=== PATIENT | female | born 1950 | race Caucasian/White ===

== ENCOUNTER → 2017-08-14 09:58 | Outpatient (CLI) | payer MEDICARE, MEDICAID, SELFPAY ==
[2017-08-14 10:25] LABS: D-Dimer Quantitative (DVT/PE) 0.29 FEU/ug/m (0.27-0.49)
== END ==
PROVIDERS: Family Provider Family Medicine; PCP Family Medicine; Visit Provider Family Medicine
DX: R07.89 Other chest pain (principal)
CPT/HCPCS: 85379

== ENCOUNTER 2017-10-11 19:35 | Emergency (ER) | payer MEDICARE, MEDICAID, SELFPAY ==
[2017-10-11 19:36] VITALS: BP 119/70; PULSE 67; RESP 18; TEMP 36.3; O2SAT 97; BMI 24.9
--- NOTE | 2017-10-11 19:44 | EKG12_ITS ---
Test Reason : PALPITATIONS Blood Pressure : / mmHG Vent. Rate : 065 BPM Atrial Rate : 065 BPM P-R Int : 182 ms QRS Dur : 074 ms QT Int : 402 ms P-R-T Axes : 074 059 078 degrees QTc Int : 418 ms Normal sinus rhythm Normal ECG Confirmed by SYED ALEXANDRE, KARLA ([id number]), staff editor CLAIRE HOPKINS ([id number]) on 10/13/2017 3:40:25 PM Referred By: BROOKLYN Confirmed By:KARLA LYNCH MD
--- NOTE | 2017-10-11 19:46 | ED.DCSUM_ITS ---
- ER Visit Summary Date of Service: 10/11/17 Chief Complaint: Palpitations History of Present Illness: The patient is a 67 F who has had palpitations for the past 3 weeks. They have been intermittent. When she does get them she feels short of breath. Today she felt nauseous. She checked her heart rate today and it was 110. She has no symptoms currently except for the nausea. When they do happen she does not have any chest pain. She does have a history of palpitations and she takes atenolol. She has been taking this normally. She sees Dr. Alfaro. She is scheduled appointment for him on October 20. Physical Examination: Vital signs reviewed. HEENT exam unremarkable. Heart is regular rate and rhythm without murmurs. Lungs are clear to auscultation. Abdomen is soft and nontender. Extremities reveal no edema. Peripheral pulses are equal. Skin exam normal. Neurologic exam normal. Test Results: EKG is normal sinus rhythm with rate of 65. No ST changes. Labs are unremarkable except for TSH of 6.14. Chest x-ray reveals chronic changes Emergency Department Course and Treatment: Patient was watched on the clinical research monitor. No signs of tachycardia. Patient feels better and wants to go home. She asked about getting a Holter monitor from here, I told her that that would not be possible. She will call Dr. Alfaro tomorrow to move her follow-up appointment Treatment Plan: [] Disposition: Discharge Impression: Palpitations This note was generated with [email or web address] dictation software. It may contain incorrect words, spelling, and punctuation that were not noted in review of the chart prior to signing ED Disposition - Plan for ED Patient: Chief Complaint: Palpitations Referrals: Booker Hunter MD [Primary Care Provider] -
[2017-10-11 19:57] VITALS: O2SAT 96
[2017-10-11] MEDS: Ondansetron ODT 4 MG Tablet PO (19:57)
--- NOTE | 2017-10-11 20:00 | RAD_ITS ---
STUDY: X-RAY CHEST REASON FOR EXAM: Female, 67 years old. Rapid heart rate and short of breath TECHNIQUE: AP COMPARISON: November 22, 2012 FINDINGS: Lungs are mildly hyperinflated but clear. There is no demonstrated pleural abnormality. Normal size heart. Normal mediastinum and prabha. Normal visualized pulmonary arteries. Normal visualized aortic arch and descending thoracic aorta. Normal visualized thoracic spine. Normal visualized ribs, clavicles, and shoulders. There is no demonstrated abnormality of the visualized soft tissue structures of the upper abdomen. No significant change since prior study RAD/Chest 1 View (Portable) IMPRESSION: Mild hyperinflation. No acute cardiopulmonary pathology Electronically Signed: Sushil Garcia MD at 20:32 EDT , Service support ,
[2017-10-11 20:05] LABS: Absolute Lymphocyte Count 2.76 X10^3/ul (0.83-4.51); Absolute Neutrophil Count 3.8 X10^3/uL (2.0-7.7); Basophil# 0.04 X10^3/uL; Basophil% 0.5 % (0-1); Eosinophils% 2.7 % (0-5); Hematocrit 36.9 % (37-47); Hemoglobin 12.3 g/dl (12.0-15.0); Lymphocyte # 2.76 X10^3/ul (4.0); Lymphocyte % 37.1 % (19-41); Mean Corp Hgb Conc 33.3 g/gl (32-36); Mean Corpuscular Hgb 32.1 pg (27.0-32.0); Mean Corpuscular Volume 96.3 fL (81-99); Mean Platelet Vol. 9.7 fl (6.2-12.0); Monocyte# 0.68 X10^3/uL; Monocyte% 9.1 % (0-10); Neutrophil # 3.75 X10^3/uL (2.7-7.7); Neutrophil % 50.5 % (47-70); POSITIVE COUNT NO; POSITIVE DIFFERENTIAL NO; POSITIVE MORPHOLOGY NO; Platelet Count 240 K/mm3 (150-450); RBC Distribution Width CV 13.2 % (11.6-14.6); RBC Distribution Width SD 46.1 fl (35.1-43.9); Red Blood Count 3.83 M/mm3 (4.2-5.4); White Blood Count 7.4 K/mm3 (4.4-11.0)
[2017-10-11 20:27] LABS: Anion Gap 6 (5-15); BUN 17 mg/dL (7-18); BUN/Creat Ratio 20.6 RATIO (10-20); Calcium,Total 9.2 mg/dL (8.5-10.1); Chloride 106 mmol/L (98-107); Creatinine, Serum 0.83 mg/dL (0.55-1.02); EST Glomerular Filtration Rate 73 mL/min (>60); Est Glom Filt Rate - Afr Amer 89 mL/min (>60); Estimated Creatinine Clearance 57.57 ml/min; Glucose 88 mg/dL (74-106); Potassium 3.8 mmol/L (3.5-5.1); Sodium Level 142 mmol/L (136-145); Thyroid Stim Hormone (TSH) 6.14 uIU/mL (0.358-3.74)
[2017-10-11 20:36] VITALS: BP 127/61; PULSE 62; RESP 16; O2SAT 96
--- NOTE | 2017-10-11 20:44 | ED.DEP ---
ED Disposition - Plan for ED Patient: Disposition: Home or Assisted Living Chief Complaint: Palpitations Instructions: ED Palpitations Referrals: Booker Hunter MD [Primary Care Provider] -
[2017-10-11 20:50] VITALS: BP 115/79; PULSE 67; RESP 18; O2SAT 96
--- NOTE | 2017-10-11 20:51 | ED.RN ---
REVIEWED D/C INSTRUCTIONS, FOLLOW UP CARE, AND S/S THAT WOULD WARRANT A RETURN TO THE ED WITH PT. PT VERBALIZED AN UNDERSTANDING AND DENIES FURTHER QUESTIONS FOR THIS RN. PT SKIN P/W/D, RESP EVEN AND UNLABORED, PT A&O X 3, NO DISTRESS NOTED. PT AMBULATED OUT OF ED, GAIT STEADY.
== END 2017-10-11 20:52 | disposition home or self-care (01) ==
PROVIDERS: Emergency Provider Emergency Medicine; Family Provider Family Medicine; PCP Family Medicine
DX: R00.2 Palpitations (principal); R11.0 Nausea; J44.9 Chronic obstructive pulmonary disease, unspecified; E03.9 Hypothyroidism, unspecified; Z72.0 Tobacco use
CPT/HCPCS: 71045; 80048; 84443; 84484; 85025; 93005; 99285; A4216

== ENCOUNTER → 2017-12-07 08:58 | Outpatient (CLI) | payer MEDICARE, MEDICAID, SELFPAY ==
--- NOTE | 2017-12-07 09:05 | STEWCON_ITS ---
Reason For Study: TACHYCARDIA Stress Results Protocol: Dobutamine Stress Echocardiogram Maximum Predicted HR: 154 bpm Target HR: 131 bpm% Maximum Predicted HR: 96 % DurationHeart Rate Stage (mm:ss) (bpm) BPDos eComment BASELINE 54 151/73 DSE- 10 MCG 3:53 61 138/6410.00 DSE- 20 MCG 3:26 10 5 127/6720.00 DSE- 30 MCG 4:12 14 8 127/6230.00ATROPINE 0.25 MG IVP GIVEN @ 1015 RECOVERY 82 101/69 Stress Duration: 11:31 mm:ss Maximum Stress HR: 148 bpm Baseline Echocardiogram Findings The estimated ejection fraction is 65 %. Stress Echo Wall motion Data Resting WMIntermediate WMStress WM Resting Wall Motion Wall Motion Stress No regional wall motion No regional wall motion abnormalities noted. abnormalities noted. EKG Data Normal intervals are noted. The patient was titrated from 10 mcg to a maximun of 30 mcg of dobutamine during the stress. The maximum heart rate attained was 148 beats per minute. This was 96% of maximum predicted heart rate. During dobutamine infusion, there were no ST or T wave changes noted to suggest ischemia. No clinical angina was noted. No arrhythmias noted. Interpretation Summary The estimated ejection fraction is 65 %. The patient was titrated from 10 mcg to a maximun of 30 mcg of dobutamine during the stress. Normal, adequate, dobutamine echocardiogram. Negative for ischemia by EKG and echocardiographic criteria. No anginal symptoms noted. No arrhythmias noted. Appropriate blood pressure response to dobutamine. Final LVEF is 75%. No complications. Ordering Physician: Ajith Andrews Referring Physician: Ajith Andrews Performed By: Dora Yousif RDCS
[2017-12-07 13:52] LABS: AST(SGOT) 21 U/L (15-37); Alanine Aminotransfer ALT/SGPT 28 U/L (13-56); Albumin, Serum 3.6 g/dL (3.2-5.0); Alkaline Phosphatase 45 U/L (45-117); Bilirubin, Direct 0.11 mg/dL (0.00-0.30); Cholesterol 213 mg/dL (200); Globulin 3.6 g/dL (2.2-4.2); High Density Lipoprotein 55 mg/dL; Protein, Total 7.2 g/dL (6.4-8.2); T4 Free Direct 1.09 ng/dL (0.76-1.46); Thyroid Stim Hormone (TSH) 2.23 uIU/mL (0.358-3.74); Triglycerides 107 mg/dL; Very Low Density Lipoprotein 21 mg/dL (5-40)
== END ==
PROVIDERS: Family Provider Family Medicine; PCP Family Medicine; Visit Provider Internal Medicine Cardiovascular Disease
DX: R00.0 Tachycardia, unspecified (principal); R06.02 Shortness of breath; I10 Essential (primary) hypertension; E78.5 Hyperlipidemia, unspecified; I49.9 Cardiac arrhythmia, unspecified
CPT/HCPCS: 36415; 80061; 80076; 84439; 84443; 93017; 93350; J7030; A4216

== ENCOUNTER → 2018-01-03 08:48 | Outpatient (CLI) | payer MEDICARE, MEDICAID, SELFPAY ==
[2018-01-03 09:29] LABS: Hematocrit 35.5 % (37-47); Hemoglobin 12.1 g/dl (12.0-15.0); Mean Corp Hgb Conc 34.1 g/gl (32-36); Mean Corpuscular Volume 96.7 fL (81-99); Mean Platelet Vol. 10.5 fl (6.2-12.0); Platelet Count 242 K/mm3 (150-450); RBC Distribution Width CV 13.1 % (11.6-14.6); RBC Distribution Width SD 44.3 fl (35.1-43.9); Red Blood Count 3.67 M/mm3 (4.2-5.4); White Blood Count 7.8 K/mm3 (4.4-11.0)
[2018-01-03 09:32] LABS: International Normalized Ratio 0.9; Partial Thromboplast Time 25.5 Seconds (24.1-36.2); Prothrombin Time (Protime)PT. 12.6 SECONDS (11.7-14.9)
[2018-01-03 09:36] LABS: Scan Indicated on CBC? Y/N NO
[2018-01-03 09:55] LABS: Anion Gap 6 (5-15); BUN 9 mg/dL (7-18); BUN/Creat Ratio 11.1 RATIO (10-20); Calcium,Total 8.8 mg/dL (8.5-10.1); Chloride 111 mmol/L (98-107); Creatinine, Serum 0.81 mg/dL (0.55-1.02); EST Glomerular Filtration Rate 75 mL/min (>60); Est Glom Filt Rate - Afr Amer 91 mL/min (>60); Glucose 124 mg/dL (74-106); Potassium 4.1 mmol/L (3.5-5.1); Sodium Level 143 mmol/L (136-145)
== END ==
PROVIDERS: Family Provider Family Medicine; PCP Family Medicine; Visit Provider Internal Medicine Cardiovascular Disease
DX: I47.2 Ventricular tachycardia (principal); R06.09 Other forms of dyspnea; R94.31 Abnormal electrocardiogram [ECG] [EKG]
CPT/HCPCS: 36415; 80048; 85027; 85610; 85730

== ENCOUNTER 2018-01-05 06:51 | Day surgery (SDC) | payer MEDICARE, MEDICAID, SELFPAY ==
[2018-01-04 11:51] VITALS: BMI 25.7
--- NOTE | 2018-01-05 09:37 | CL.D_ITS ---
Patient Name: KWADWO SILVESTRE Study Date: 01/05/2018 Performing: Ajith Andrews MD Ht: 64.17 inches 163 cm : 1950 Wt: 149.91 lbs 68 kg Age: 67 Gender: female BSA: 1.73 PROCEDURE(S) PERFORMED XL26-PMU/COR/LV CLINICAL PROFILE AND INDICATIONS Indications: Cardiac Arrythmia Heart Failure: None Stress/Imaging Stress Echocardiogram: Yes Result: NegativeStress Echocardiogram: Negative Angina Classification Anginal Classification w/in 2 Weeks: No symptoms CAD Presentations: Other: Wide complex tachycardia on event monitor; palpitations. Comorbidities/Risk Factors: Current/Recent Smoker (< 1year) Hypertension Dyslipidemia Peripheral Arterial Disease CONCLUSIONS Normal coronary arteries Normal LV size, wall motion,and systolic function Palpitations most likely due to side effects of MDI tx for COPD. RECOMMENDATIONS Continue beta blockers. d/c plavix Consider changing to Cardizem if palps continue. DESCRIPTION OF PROCEDURE The patient arrived to the procedure lab. The risks and benefits of the procedure as well as a full d escription of our services here and current unavailability of surgical backup were fully explained to the patient and/or their significant other prior to the catheterization. The Timeout was completed, verifying the correct patient and procedure. The patient's procedural site was prepped and draped in the usual fashion. Local anesthetic was given subcutaneously to right groin region with Lidocaine 2%. Using a modified Seldinger technique, arterial access was obtained via the right femoral artery, a 4 Fr sheath was inserted Left Coronary Artery selective angiography was performed in multiple views us ing a 4 Fr. JL5 catheter. Right Coronary Artery selective angiography was then performed in multiple views using a 4 Fr. 3DRC catheter. Left Ventriculography was performed in ATWOOD projection using a 4 Fr . Pigtail catheter. LV to AO pullback pressures were then recorded.The arterial sheath was pulled and manual compression applied until hemostasis is achieved. CORONARY ANGIOGRAPHY DOMINANCE: Right Dominant LEFT HEART ASSESSMENT Left Ventricular Ejection Fraction: by LV Gram 65 % Normal LV wall motion Normal Left Ventricular systolic function Normal Left Ventricular systolic function LEFT MAIN: Angiographically normal LEFT ANTERIOR DECENDING ARTERY: Angiographically normal CIRCUMFLEX ARTERY: Angiographically normal RIGHT CORONARY ARTERY: Angiographically normal COMPLICATIONS No Complications PROCEDURE MEDICATIONS Versed 1 mg IV Oxygen: 2 L/min via nasal cannula Benadryl 25 mg IV @ 01/05/2018 09:03:13 Solu-cortef 100 mg IV 01/05/2018 09:03:26 SUMMARY OF HEMODYNAMIC DATA Time AIR REST ECG 07:32:58 ECG 09:01:57 AO 141/65 (94) SA 09:23:34 LV 137/-15, 8 09:29:03 LV 139/-16, 11 09:29:09 LVp 139/-16, 12 09:29:15 AOp 136/56 (91) 09:29:20 Signed By Ajith Andrews MD On 01/05/2018 9:36:19 AM Ajith Andrews MD
== END 2018-01-05 13:57 | disposition home or self-care (01) ==
PROVIDERS: Family Provider Family Medicine; PCP Family Medicine; Visit Provider Internal Medicine Cardiovascular Disease
DX: I47.2 Ventricular tachycardia (principal); I73.9 Peripheral vascular disease, unspecified; E78.5 Hyperlipidemia, unspecified; E03.9 Hypothyroidism, unspecified; J45.909 Unspecified asthma, uncomplicated; K21.9 Gastro-esophageal reflux disease without esophagitis; F17.210 Nicotine dependence, cigarettes, uncomplicated; Z79.02 Long term (current) use of antithrombotics/antiplatelets; Z79.82 Long term (current) use of aspirin; Z79.52 Long term (current) use of systemic steroids; Z79.899 Other long term (current) drug therapy; Z87.19 Personal history of other diseases of the digestive system
CPT/HCPCS: 93458; 99152; J7040; C1769; C1894; Q9967

== ENCOUNTER → 2018-03-12 08:58 | Outpatient (CLI) | payer MEDICARE, MEDICAID, SELFPAY ==
[2018-03-12 10:53] LABS: AST(SGOT) 15 U/L (15-37); Alanine Aminotransfer ALT/SGPT 22 U/L (13-56); Albumin, Serum 3.5 g/dL (3.2-5.0); Alkaline Phosphatase 45 U/L (45-117); Bilirubin, Direct 0.11 mg/dL (0.00-0.30); Cholesterol 196 mg/dL (200); Globulin 3.5 g/dL (2.2-4.2); High Density Lipoprotein 52 mg/dL; Triglycerides 95 mg/dL; Very Low Density Lipoprotein 19 mg/dL (5-40)
== END ==
PROVIDERS: Family Provider Family Medicine; PCP Family Medicine; Referring Provider Nurse Practitioner Family; Visit Provider Nurse Practitioner Family
DX: E78.5 Hyperlipidemia, unspecified (principal); R00.2 Palpitations; R06.09 Other forms of dyspnea; F17.200 Nicotine dependence, unspecified, uncomplicated
CPT/HCPCS: 36415; 80061; 80076

== ENCOUNTER → 2018-03-23 12:00 | Outpatient (CLI) | payer MEDICARE, MEDICAID, SELFPAY ==
--- NOTE | 2018-03-23 12:33 | CDU_ITS ---
Reason For Study: Stenosis Rt. Velocities/BP Lt. Velocities/BP Prox CCA 78/24 cm/sec. Prox CCA 76/28 cm/sec. Mid CCA 69/21 cm/sec. Mid CCA 68/27 cm/sec. Dist CCA 69/28 cm/sec. Dist CCA 73/27 cm/sec. Prox ICA 71/24 cm/sec. Prox ICA 81/30 cm/sec. Mid ICA 85/35 cm/sec. Mid ICA 103/41 cm/sec. Dist ICA 90/35 cm/sec. Dist ICA 96/46 cm/sec. Rt. ICA/CCA = 1.30. Lt. ICA/CCA = 1.51. Prox ECA 58/13 cm/sec. Prox ECA 67/9 cm/sec. Rt. Vert. 49/17 cm/sec. Lt. Vert. 65/24 cm/sec. Right Extracranial There is intimal thickening but no significant atherosclerotic plaque noted in the right common carotid artery. There is heterogeneous, irregular atherosclerotic plaque noted in the right internal carotid artery. There is no significant atherosclerotic plaque noted in the right external carotid artery. Antegrade flow is noted in the right vertebral artery. Left Extracranial There is heterogeneous, irregular atherosclerotic plaque noted in the left common carotid artery. There is heterogeneous, irregular atherosclerotic plaque noted in the left internal carotid artery. There is heterogeneous, irregular atherosclerotic plaque noted in the left external carotid artery. Antegrade flow is noted in the left vertebral artery. Procedure Carotid Duplex [id number]. Exam performed in department. Interpretation Summary Mild (<50%) stenosis right extracranial internal carotid. Mild (<50%) stenosis left extracranial internal carotid. Flow within the vertebral arteries is antegrade bilaterally. Ordering Physician: Booker Hunter Referring Physician: Booker Hunter Performed By: Angelina Goldberg, RDCS, RVT
== END ==
PROVIDERS: Family Provider Family Medicine; PCP Family Medicine; Referring Provider Family Medicine; Visit Provider Family Medicine
DX: I65.23 Occlusion and stenosis of bilateral carotid arteries (principal)
CPT/HCPCS: 93880

== ENCOUNTER → 2018-04-25 08:20 | Outpatient (CLI) | payer MEDICARE, MEDICAID, SELFPAY ==
--- NOTE | 2018-04-25 08:26 | BI_ITS ---
MAMMOGRAPHY - BILATERAL SCREENING REASON FOR EXAM: Female, 68 years old. Routine annual screening examination. PERTINENT HISTORY: Sister with breast cancer. TECHNIQUE: Digital bilateral breast rory (3D mammographic acquisition) in the CC and MLO projections. 2-D mediolateral oblique (MLO) and craniocaudad (CC) views of both breasts were obtained. CAD: Full Field Digital Mammography with Computer Added Detection was performed. COMPARISON: Comparison is made with prior study dated April 19, 2017 and April 18, 2016. FINDINGS: Breast Composition: The breasts are heterogeneously dense, which may obscure small masses. There are no dominant masses or suspicious calcifications. No other significant abnormalities are identified. There has been no significant change since the prior study. BI/SCREENING MAMM (CAD), BILAT IMPRESSION: Stable bilateral screening mammogram. Yearly follow-up mammogram recommended. (A) ASSESSMENT CATEGORY: BIRADS Category 1: Negative. A letter regarding these results will be sent to the patient by the facility within 30 days. Approximately 10% of breast cancers are not detected by mammography. A normal mammogram should not delay biopsy of a clinically suspicious abnormality. [id number] Electronically Signed: Zi Kahn MD at 9:52 EST Tel [phone], Service support ,
== END ==
PROVIDERS: Family Provider Family Medicine; PCP Family Medicine; Visit Provider Family Medicine
DX: Z12.31 Encounter for screening mammogram for malignant neoplasm of breast (principal)
CPT/HCPCS: 77063; 77067

== ENCOUNTER → 2018-09-12 08:44 | Outpatient (CLI) | payer MEDICARE, MEDICAID, SELFPAY ==
[2018-07-20 13:55] VITALS: BMI 25.9
[2018-09-12 10:25] LABS: AST(SGOT) 20 U/L (15-37); Alanine Aminotransfer ALT/SGPT 28 U/L (13-56); Albumin, Serum 3.8 g/dL (3.2-5.0); Alkaline Phosphatase 46 U/L (45-117); Bilirubin, Direct 0.12 mg/dL (0.00-0.30); Cholesterol 212 mg/dL (200); Globulin 3.6 g/dL (2.2-4.2); High Density Lipoprotein 59 mg/dL; Protein, Total 7.4 g/dL (6.4-8.2); Triglycerides 116 mg/dL; Very Low Density Lipoprotein 23 mg/dL (5-40)
== END ==
PROVIDERS: Family Provider Family Medicine; PCP Family Medicine; Referring Provider Internal Medicine Cardiovascular Disease; Visit Provider Internal Medicine Cardiovascular Disease
DX: E05.90 Thyrotoxicosis, unspecified without thyrotoxic crisis or storm (principal); E78.5 Hyperlipidemia, unspecified
CPT/HCPCS: 36415; 80061; 80076

== ENCOUNTER → 2019-02-22 08:12 | Outpatient (CLI) | payer MEDICARE, MEDICAID, SELFPAY ==
[2019-02-21 14:15] VITALS: BMI 25.7
[2019-02-22 10:53] LABS: AST(SGOT) 22 U/L (15-37); Alanine Aminotransfer ALT/SGPT 24 U/L (13-56); Albumin, Serum 3.6 g/dL (3.2-5.0); Alkaline Phosphatase 50 U/L (45-117); Bilirubin, Direct 0.08 mg/dL (0.00-0.30); Cholesterol 204 mg/dL (200); Globulin 3.6 g/dL (2.2-4.2); High Density Lipoprotein 57 mg/dL; Protein, Total 7.2 g/dL (6.4-8.2); Triglycerides 91 mg/dL; Very Low Density Lipoprotein 18 mg/dL (5-40)
== END ==
PROVIDERS: Family Provider Family Medicine; PCP Family Medicine; Referring Provider Internal Medicine Cardiovascular Disease; Visit Provider Internal Medicine Cardiovascular Disease
DX: E78.5 Hyperlipidemia, unspecified (principal)
CPT/HCPCS: 36415; 80061; 80076

== ENCOUNTER → 2019-04-29 10:25 | Outpatient (CLI) | payer MEDICARE, MEDICAID, SELFPAY ==
[2018-07-20 13:55] VITALS: BMI 25.9
[2019-02-21 14:15] VITALS: BMI 25.7
--- NOTE | 2019-04-29 10:28 | BI_ITS ---
MAMMOGRAPHY - BILATERAL SCREENING REASON FOR EXAM: Female, 69 years old. Routine annual screening examination. PERTINENT HISTORY: Sisters with breast cancer. TECHNIQUE: Digital bilateral breast dallin (3D mammographic acquisition) in the CC and MLO projections. 2-D mediolateral oblique (MLO) and craniocaudad (CC) views of both breasts were obtained. CAD: Full Field Digital Mammography with Computer Added Detection was performed. COMPARISON: Comparison is made with prior study dated April 25, 2018 and April 19, 2017. FINDINGS: Breast Composition: The breasts are heterogeneously dense, which may obscure small masses. There are no dominant masses or suspicious calcifications. No other significant abnormalities are identified. There has been no significant change since the prior study. BI/SCREEN MAMM (CAD) W/DALLIN BILAT IMPRESSION: Stable bilateral screening mammogram. Yearly follow-up mammogram recommended. (A) ASSESSMENT CATEGORY: BIRADS Category 1: Negative. A letter regarding these results will be sent to the patient by the facility within 30 days. Approximately 10% of breast cancers are not detected by mammography. A normal mammogram should not delay biopsy of a clinically suspicious abnormality. [id number] Electronically Signed: Zi Kahn, at 12:55 EST , Service support ,
== END ==
PROVIDERS: Family Provider Family Medicine; PCP Family Medicine; Referring Provider Family Medicine; Visit Provider Family Medicine
DX: Z12.31 Encounter for screening mammogram for malignant neoplasm of breast (principal)
CPT/HCPCS: 77063; 77067

== ENCOUNTER → 2020-09-02 13:46 | Outpatient (CLI) | payer MEDICARE, MEDICAID, SELFPAY ==
[2019-02-21 14:15] VITALS: BMI 25.7
--- NOTE | 2020-09-02 13:52 | CDU_ITS ---
Reason For Study: Carotid stenosis Rt. Velocities/BP Lt. Velocities/BP Prox CCA 90.4/27.8 cm/sec. Prox CCA 76/26.5 cm/sec. Mid CCA 86.5/30.4 cm/sec. Mid CCA 74.7/27.8 cm/sec. Dist CCA 73.4/27.8 cm/sec. Dist CCA 70.8/23.9 cm/sec. Prox ICA 64.3/21.3 cm/sec. Prox ICA 90.4/34.3 cm/sec. Mid ICA 61.7/27.8 cm/sec. Mid ICA 63/21.3 cm/sec. Dist ICA 63/23.9 cm/sec. Dist ICA 81.2/38.2 cm/sec. Rt. ICA/CCA = 0.74. Lt. ICA/CCA = 1.21. Prox ECA 61.7/9.5 cm/sec. Prox ECA 57.8/8.2 cm/sec. Rt. Vert. 48.6/16 cm/sec. Lt. Vert. 57.8/21.3 cm/sec. Right Extracranial There is intimal thickening but no significant atherosclerotic plaque noted in the right common carotid artery. There is heterogeneous, irregular atherosclerotic plaque noted in the right internal carotid artery. There is intimal thickening but no significant atherosclerotic plaque noted in the right external carotid artery. Antegrade flow is noted in the right vertebral artery. Left Extracranial There is homogeneous, smooth atherosclerotic plaque noted in the left common carotid artery. There is heterogeneous, irregular atherosclerotic plaque noted in the left internal carotid artery. There is heterogeneous, irregular atherosclerotic plaque noted in the left external carotid artery. Antegrade flow is noted in the left vertebral artery. There is heterogeneous, irregular atherosclerotic plaque noted in the left bulb. Procedure Carotid Duplex [id number]. This is a Carotid Duplex examination using B-mode, color flow and specral Doppler. Exam performed in department. VL/Carotid Duplex Ultrasound Interpretation Summary Mild (<50%) stenosis right extracranial internal carotid. Mild (<50%) stenosis left extracranial internal carotid. Flow within the vertebral arteries is antegrade bilaterally. Ordering Physician: Booker Hunter Referring Physician: Booker Hunter Performed By: Fartun Ryan RVT
--- NOTE | 2020-09-02 14:15 | BI_ITS ---
MAMMOGRAPHY - BILATERAL SCREENING REASON FOR EXAM: Female, 70 years old. Routine annual screening examination. PERTINENT HISTORY: Sisters with breast cancer. TECHNIQUE: Digital bilateral breast dallin (3D mammographic acquisition) in the CC and MLO projections. 2-D mediolateral oblique (MLO) and craniocaudad (CC) views of both breasts were obtained. CAD: Full Field Digital Mammography with Computer Added Detection was performed. COMPARISON: Comparison is made with prior examination of 04/29/2019 and 04/25/2018. FINDINGS: Breast Composition: The breasts are heterogeneously dense, which may obscure small masses. There are no dominant masses or suspicious calcifications. No other significant abnormalities are identified. There has been no significant change since the prior study. BI/SCRN MAMM (CAD)W/DALLIN BILAT IMPRESSION: Stable bilateral screening mammogram. Yearly follow-up mammogram recommended. (A) ASSESSMENT CATEGORY: BIRADS Category 1: Negative. A letter regarding these results will be sent to the patient by the facility within 30 days. Approximately 10% of breast cancers are not detected by mammography. A normal mammogram should not delay biopsy of a clinically suspicious abnormality. [id number] Electronically Signed: Zi Kahn MD at 15:03 EDT , Service support ,
== END ==
PROVIDERS: PCP Family Medicine; Visit Provider Family Medicine
DX: Z12.31 Encounter for screening mammogram for malignant neoplasm of breast (principal); Z80.3 Family history of malignant neoplasm of breast; I65.23 Occlusion and stenosis of bilateral carotid arteries
CPT/HCPCS: 77063; 77067; 93880

== ENCOUNTER 2021-09-03 09:01 | Outpatient (CLI) | payer MEDICARE, MEDICAID, SELFPAY ==
--- NOTE | 2021-09-03 09:08 | BI_ITS ---
MAMMOGRAPHY - BILATERAL SCREENING REASON FOR EXAM: Female, 71 years old. Routine annual screening examination. PERTINENT HISTORY: Sisters with breast cancer. TECHNIQUE: Digital bilateral breast dallin (3D mammographic acquisition) in the CC and MLO projections. 2-D mediolateral oblique (MLO) and craniocaudad (CC) views of both breasts were obtained. CAD: Full Field Digital Mammography with Computer Added Detection was performed. COMPARISON: Comparison is made with prior study dated 09/02/2020 and 04/29/2019. FINDINGS: Breast Composition: The breasts are heterogeneously dense, which may obscure small masses. There are no dominant masses or suspicious calcifications. Stable benign-appearing bilateral axillary lymph nodes. No other significant abnormalities are identified. There has been no significant change since the prior study. BI/SCRN MAMM (CAD)W/DALLIN BILAT IMPRESSION: Stable bilateral screening mammogram. Yearly follow-up mammogram recommended. (A) ASSESSMENT CATEGORY: BIRADS Category 2: Benign. A letter regarding these results will be sent to the patient by the facility within 30 days. Approximately 10% of breast cancers are not detected by mammography. A normal mammogram should not delay biopsy of a clinically suspicious abnormality. [id number] Electronically Signed: Zi Kahn MD at 11:11 EDT ,
--- NOTE | 2021-09-03 09:45 | CDU_ITS ---
Reason For Study: ABN CAROTID DUPLEX SCAN Rt. Velocities/BP Lt. Velocities/BP Prox CCA 72.5/24.3 cm/sec. Prox CCA 89.5/30.6 cm/sec. Mid CCA 80.3/23.0 cm/sec. Mid CCA 69.9/23.2 cm/sec. Dist CCA 76.4/21.6 cm/sec. Dist CCA 79.7/28.1 cm/sec. Prox ICA 72.5/24.3 cm/sec. Prox ICA 79.7/31.8 cm/sec. Mid ICA 84.2/36.0 cm/sec. Mid ICA 77.2/26.9 cm/sec. Dist ICA 64.7/24.3 cm/sec. Dist ICA 94.4/14.6 cm/sec. Rt. ICA/CCA = 84.2/80.3=1.0. Lt. ICA/CCA = 94.4/69.9=1.4. Prox ECA 75.1/13.8 cm/sec. Prox ECA 66.2/7.2 cm/sec. Rt. Vert. 42.4/13.1 cm/sec. Lt. Vert. 40.5/13.1 cm/sec. Right Extracranial There is homogeneous, smooth atherosclerotic plaque noted in the right common carotid artery. There is heterogeneous, irregular atherosclerotic plaque noted in the right internal carotid artery. There is homogeneous, smooth atherosclerotic plaque noted in the right external carotid artery. Antegrade flow is noted in the right vertebral artery. Left Extracranial There is homogeneous, smooth atherosclerotic plaque noted in the left common carotid artery. There is heterogeneous, irregular atherosclerotic plaque noted in the left internal carotid artery. There is heterogeneous, irregular atherosclerotic plaque noted in the left external carotid artery. Antegrade flow is noted in the left vertebral artery. Procedure Carotid Duplex [id number]. This is a Carotid Duplex examination using B-mode, color flow and specral Doppler. Exam performed in department. VL/Carotid Duplex Ultrasound Interpretation Summary Minimal irregular plaque in the proximal right internal carotid artery with les s than 50% stenosis Less than 50% stenosis right external carotid artery Irregular calcific plaque of the proximal left internal carotid artery with les s than 50% stenosis Less than 50% stenosis left external carotid artery Patent and antegrade vertebral arteries bilaterally No change from the previous examination of September 02, 2020 Ordering Physician: Booker Hunter Referring Physician: Booker Hunter Performed By: Betzy Rivera, HOME, RVT
== END 2021-09-03 23:59 | disposition home or self-care (01) ==
LOC: OPBI 09:02
PROVIDERS: PCP Family Medicine; Referring Provider Family Medicine; Visit Provider Family Medicine
DX: Z12.31 Encounter for screening mammogram for malignant neoplasm of breast (principal); I65.23 Occlusion and stenosis of bilateral carotid arteries; R94.39 Abnormal result of other cardiovascular function study; Z80.3 Family history of malignant neoplasm of breast
CPT/HCPCS: 77063; 77067; 93880

== ENCOUNTER 2023-04-08 12:03 | Emergency (ER) | payer MEDICARE, MEDICAID, SELFPAY ==
[2023-04-08 12:04] VITALS: BP 115/67; PULSE 69; RESP 16; TEMP 36.1; O2SAT 96; BMI 22.8
--- NOTE | 2023-04-08 12:18 | CT_ITS ---
STUDY: CT ABDOMEN AND PELVIS WITH CONTRAST REASON FOR EXAM: Female, 73 years old. Left-sided abdominal pain RADIATION DOSAGE (If Supplied By Facility): CTDIvol = ( 14.52 ) mGy, DLP = ( 428.22 ) mGycm TECHNIQUE: Transaxial images were obtained from the dome of the diaphragm to the symphysis pubis without oral contrast. IV 100mL Isovue-370 was administered. Sagittal and coronal images were reconstructed. Individualized dose optimization techniques were used for this CT. COMPARISON: None. FINDINGS: The visualized lung bases are unremarkable. The visualized portions of the heart are within normal limits. Normal liver. Normal gallbladder and extrahepatic biliary system. Normal spleen. Normal pancreas. Normal bilateral adrenal glands. Normal right kidney. Normal left kidney. Normal visualized stomach. Normal small intestine. Scattered colonic diverticula, no CT evidence of acute diverticulitis. There is non-visualization of the appendix. Normal abdominal aorta. Normal inferior vena cava. Normal retroperitoneum. Normal urinary bladder. Uterus is present, the endometrium cannot be accurately evaluated with CT. Normal abdominal wall. There are diffuse degenerative changes of the visualized lumbar spine, and pelvis. CT/Abdomen/Pelvis W IV Cont ONLY IMPRESSION: No suspicious solid organ abnormality Colonic diverticulosis, no CT evidence of acute diverticulitis No free intraperitoneal fluid, air, or suspicious adenopathy Degenerative bony changes Electronically Signed: Gabriel Shelton MD at 13:29 EDT ,
--- NOTE | 2023-04-08 12:21 | EDS_ITS ---
HPI HPI - GI History of Present Illness Chief Complaint: Abd Pain Detail of Chief Complaint: Rectal bleeding and abdominal pain Informant: patient Narrative Narrative: Patient presents to the emergency department with complaint of rectal bleeding that started 3 nights ago. Patient states that she had 2 bouts of bright red blood on top of her stool. Patient had another mild episode last evening. She was seen by her primary care physician today and noted she had left sided abdominal pain. Patient referred to the ER for evaluation. Patient's had no fever or vomiting. She denies diarrhea. Patient not anticoagulated. At rest does not have much in the way of abdominal pain. Unsure if she is ever had diverticulitis. [facility] Medical History (Updated 04/08/23 @ 14:[address] Maggi Ansari, ) Asthma GERD (gastroesophageal reflux disease) History of GI bleed Hyperlipidemia Hyperthyroidism Nicotine dependence Paroxysmal atrial fibrillation Paroxysmal ventricular tachycardia Home Medications albuterol sulfate 90 mcg/actuation aerosol inhaler 2 puff inhalation Q4H PRN PRN Sob &/Or Wheezing 10/11/17 [History Last Taken Unknown] cholecalciferol (vitamin D3) 25 mcg (1,000 unit) tablet 1,000 unit PO DAILY 10/11/17 [History Last Taken Unknown] ipratropium bromide 17 mcg/actuation HFA aerosol inhaler 2 puff PO 4X/DAY 10/11/17 [History Last Taken Unknown] levothyroxine 50 mcg tablet 50 mcg PO QODAY 10/11/17 [History Last Taken 01/05/18] levothyroxine 75 mcg tablet 75 mcg PO QODAY 10/11/17 [History Last Taken Unknown] omeprazole 20 mg capsule,delayed release 20 mg PO BID 10/11/17 [History Last Taken Unknown] pravastatin 20 mg tablet 20 mg PO QDAY #90 tabs 12/08/17 [Rx Last Taken Unknown] ascorbic acid (vitamin C) 500 mg capsule 500 mg PO QDAY 01/03/18 [History Last Taken Unknown] garlic 1,000 mg capsule 1,000 mg PO QDAY 01/03/18 [History Last Taken Unknown] multivitamin (Daily Multi-Vitamin tablet) 1 tab PO QDAY 01/03/18 [History Last Taken Unknown] aspirin 81 mg tablet,delayed release (Adult Aspirin Regimen) 81 mg PO DAILY 02/21/19 [History Last Taken Unknown] atenolol 50 mg tablet 50 mg PO BID #180 tabs 04/10/19 [Rx Last Taken Unknown] Allergy/AdvReac Type Severity Reaction Status Date / Time nickel AdvReac Intermediate Other Verified 04/08/23 12:04 iodine AdvReac Unknown Verified 04/08/23 12:04 metronidazole AdvReac Unknown Verified 04/08/23 12:04 sulfamethoxazole AdvReac Unknown Verified 04/08/23 12:04 [From Bactrim] trimethoprim [From Bactrim] AdvReac Unknown Verified 04/08/23 12:04 Surgical History History of exploratory laparotomy History of left heart catheterization (01/05/18) Social History (Updated 02/21/19 @ 14:[address] Ajith Andrews MD) Smoking Status: Current some day smoker tobacco type: cigarettes ROS ROS ED Review of Systems ROS Unobtainable: other Constitutional Constitutional ED: Reports lethargy; Denies chills, fever(s), sweats or weight loss Eyes Eyes: Denies blurry vision, change in vision or diplopia ENT ENT ED: Denies rhinorrhea or sore throat Cardiovascular Cardiovascular: Denies chest pain, orthopnea or racing heartbeat Respiratory/Chest Respiratory/Chest: Denies cough, dyspnea, dyspnea on exertion, orthopnea or sputum Gastrointestinal Gastrointestinal: Reports abdominal pain and other Details: Blood in stool ; Denies diarrhea, nausea or vomiting Genitourinary Genitourinary ED: Denies dysuria, hematuria or urinary frequency Musculoskeletal Musculoskeletal: Denies arthralgias, back pain, myalgias or neck pain Integumentary Denies abscess, Abrasions or rash Neurologic Neurologic: Denies headache(s) or weakness Psychiatric Psychiatric: Denies anxiety, depression or suicidal thoughts Endocrine Endocrinology: Denies polydipsia, polyphagia or polyuria Hematologic/Lymphatic Hematologic/Lymphatic: Denies easy bleeding, easy bruising or lymphadenopathy Allergic/Immunologic Allergic/Immunologic ED: Denies mouth swelling, tongue swelling or urticaria EXAM Physical Exam Const Vital Signs: 04/08/23 12:04 Temperature 96.9 F L Temperature Source Temporal Pulse Rate 69 Respiratory Rate 16 Blood Pressure 115/67 Blood Pressure Mean 83 Pulse Ox 96 Positive well nourished and well developed General Appearance ED: well developed and NAD HEENT Reports TM's clear and moist mucous membranes normocephalic and atraumatic; Negative for trauma or tenderness Tympanic Membrane ED: Yes TM's clear Eyes PERRL and EOMs intact bilaterally General Eye ED: Negative for pale conjunctiva or scleral icterus Neck no lymphadenopathy, supple and no JVD General: Negative for tenderness Chest Wall inspection of chest normal and palpation of chest normal Chest: Negative for tenderness Resp normal respiratory effort and clear to auscultation bilaterally Effort and Inspection: Negative for respiratory distress or pain with movement Auscultation: Negative for rhonchi, wheezes or diminished lung sounds Cardio regular rate, regular rhythm, S1 normal heart sound, S2 normal heart sound and no murmurs Peripheral Pulses: pulses 2+ throughout GI normal to inspection, nondistended, normoactive bowel sounds, soft to palpation, non-distended and no masses GI Narrative: Numbness palpation over the left upper quadrant and left lower quadrant with some mild guarding. There is no rebound, rigidity, or pedal signs. No mass palpated. Back/Spine no CVA tenderness and no thoracic nor lumbar tenderness Extremity normal to inspection General Extremety ED: Negative for edema General Extremity: Negative for edema Neuro oriented x3, CN's II-XII intact bilaterally, no sensory deficits noted and gait normal Sensorium / Orientation: awake, alert, oriented to person, oriented to place and oriented to time Motor Exam: strength 5/5 throughout and strength abnormal Psych mental status grossly normal Skin no rashes or lesions noted and no wounds MDM MDM MDM Narrative Medical decision making narrative: Presents with blood in her stool x3 days and some left lower quadrant abdominal pain. In the differential would be diverticulitis versus ischemic bowel disease versus colon mass or tumor or rectal mass. IV line established. Rectal exam performed and there were no masses in the rectal vault. There is no evidence of hemorrhoids or fissures noted. Hemoccult was positive. IV line established and lab work-up was obtained showed a white blood cell count of 8.0 with hemoglobin of 12 and platelet count of 265. Chemistries unremarkable. BUN was 13 and creatinine 0.84. Urinalysis normal. CT scan of the abdomen pelvis with IV contrast showed diverticulosis otherwise no acute disease process. Patient clinically stable. I feel she can be discharged to home. We will attempt to contact her PCP to inform him of findings as he is the one that sent her in to be evaluated today. Patient I feel will likely require outpatient colonoscopy. She tells me her last colonoscopy was in 2014. Patient cannot remember who did her last colonoscopy. Lab Data Labs: Laboratory Results - last 24 hr 04/08/23 04/08/23 12:29 12:58 WBC 8.0 RBC 3.80 L Hgb 12.3 Hct 36.9 L MCV 97.1 MCH 32.4 H MCHC 33.3 RDW Std Deviation 48.2 H RDW Coeff of Angelina 13.4 Plt Count 265 MPV 10.4 Immature Gran % (Auto) 0.300 Neut % (Auto) 62.5 Lymph % (Auto) 26.9 [place] % (Auto) 8.2 Eos % (Auto) 1.3 Baso % (Auto) 0.8 Absolute Neuts (auto) 5.0 Absolute Lymphs (auto) 2.14 Nucleated RBC % 0 Sodium 136 Potassium 4.1 Chloride 106 Carbon Dioxide 28.0 Anion Gap 2 L BUN 13 Creatinine 0.84 Estim Creat Clear Calc 52.28 Est GFR (MDRD) Af Amer 86 Est GFR (MDRD) Non-Af 71 BUN/Creatinine Ratio 15.4 Glucose 102 Lactic Acid 0.9 Calcium 9.0 Urine Color Yellow Urine Clarity Clear Urine pH 6.5 Ur Specific [place] 1.010 Urine Protein Negative Urine Glucose (UA) Normal Urine Ketones Negative Urine Occult Blood 10 H Urine Nitrite Negative Urine Bilirubin Negative Urine Urobilinogen Normal Ur Leukocyte Esterase Negative Urine RBC 0 SEEN Urine WBC 0 SEEN Ur Squamous Epith Cells 0 SEEN Urine Bacteria 0 SEEN Urine Mucus 0 SEEN Radiography Diagnostic Testing: Clinical Impression(s) from Imaging Studies Abdomen/Pelvis CT 04/08/23 12:18 IMPRESSION: No suspicious solid organ abnormality Colonic diverticulosis, no CT evidence of acute diverticulitis No free intraperitoneal fluid, air, or suspicious adenopathy Degenerative bony changes Electronically Signed: Gabriel Shelton MD at 13:29 EDT , Discharge Plan Triage Chief Complaint: Abd Pain Other Complaint: GI Bleed ED Provider: Maggi Ansari Dx/Rx/DC Orders Clinical Impression: Rectal bleed, Abdominal pain Instructions: ED Abdominal Pain Unkn Cause Fem, ED Lower GI Bleeding (Stable) Prescriptions: No Action multivitamin [Daily Multi-Vitamin] tablet 1 tab PO QDAY ascorbic acid (vitamin C) 500 mg capsule 500 mg PO QDAY aspirin [Adult Aspirin Regimen] 81 mg tablet,delayed release (DR/EC) 81 mg PO DAILY levothyroxine 75 tablet 75 mcg PO QODAY Patient Comments: levothyroxine 50 tablet 50 mcg PO QODAY Patient Comments: omeprazole 20 capsule,delayed release(DR/EC) 20 mg PO BID Patient Comments: albuterol sulfate 18 GM HFA aerosol inhaler 2 puff INHALATION Q4H PRN PRN (Reason: Sob &/Or Wheezing) Patient Comments: ipratropium bromide 17 inhaler 2 puff PO 4X/DAY Patient Comments: cholecalciferol (vitamin D3) 1,000 UNIT tablet 1,000 unit PO DAILY garlic 1,000 mg capsule 1,000 mg PO QDAY pravastatin 20 mg tablet 20 mg PO QDAY Qty: 90 0RF atenolol 50 mg tablet 50 mg PO BID Qty: 180 3RF Primary Care Provider: Booker Hunter Referrals: Booker Hunter MD [Primary Care Provider] - 3-5 Days Disposition Disposition: Home, Self Care
[2023-04-08] MEDS: DiphenhydrAMINE 50 MG/ML Syringe 25 MG IV (12:35)
[2023-04-08] MEDS: 0.9% Normal Saline (1000mL) 1,000 ML 125 ML IV (12:36)
[2023-04-08] MEDS: MethylPREDNISolone 125 MG/2 ML Vial IV (12:36)
[2023-04-08 12:44] LABS: Absolute Lymphocyte Count 2.14 X10^3/uL (0.83-4.51); Basophil# 0.06 X10^3/uL; Basophil% 0.8 % (0-1); Eosinophils% 1.3 % (0-5); Hematocrit 36.9 % (37-47); Hemoglobin 12.3 g/dL (12.0-15.0); Lymphocyte # 2.14 X10^3/ul (0.83-4.51); Lymphocyte % 26.9 % (19-41); Mean Corp Hgb Conc 33.3 g/dL (32-36); Mean Corpuscular Hgb 32.4 pg (27.0-32.0); Mean Corpuscular Volume 97.1 fL (81-99); Mean Platelet Vol. 10.4 fl (6.2-12.0); Monocyte# 0.65 X10^3/uL; Monocyte% 8.2 % (0-10); NRBC Flagged by Analyzer 0 % (0-5); Neutrophil # 4.98 X10^3/uL (2.7-7.7); Neutrophil % 62.5 % (47-70); Platelet Count 265 K/mm3 (150-450); RBC Distribution Width CV 13.4 % (11.6-14.6); RBC Distribution Width SD 48.2 fl (35.1-43.9)
[2023-04-08 12:58] LABS: Anion Gap 2 (5-15); BUN 13 mg/dL (7-18); BUN/Creat Ratio 15.4 RATIO (10-20); Chloride 106 mmol/L (98-107); Creatinine, Serum 0.84 mg/dL (0.55-1.02); EST Glomerular Filtration Rate 71 mL/min (>60); Est Glom Filt Rate - Afr Amer 86 mL/min (>60); Estimated Creatinine Clearance 52.28 ml/min; Glucose 102 mg/dL (74-106); Potassium 4.1 mmol/L (3.5-5.1); Sodium Level 136 mmol/L (136-145)
[2023-04-08 12:59] LABS: Lactic Acid 0.9 mmol/L (0.4-1.9)
[2023-04-08 13:03] LABS: Bacteria 0 SEEN /hpf (None Seen); Mucous, Urine 0 SEEN /hpf (<or=2+); Red Blood Cells-Urine 0 SEEN /hpf (0-5); Squamous Epithelial Cells - UA 0 SEEN /hpf (5-10); White Blood Cells 0 SEEN /hpf (0-5)
[2023-04-08 13:05] LABS: Color, Urine Yellow (Yellow); Glucose, Dipstick Normal (Normal); Ketone-Dipstick Negative (Negative); Leukocyte Esterase-Dipstick Negative /ul (Negative); Nitrite-Dipstick Negative (Negative); Occult Blood-Urine 10 /ul (Negative); Protein-Dipstick Negative (Negative); Urine Bilirubin Dipstick Negative (Negative); Urine Clarity Clear (Clear); Urine Urobilinogen Normal (Normal); Urine pH 6.5 (5.0 - 8.0)
[2023-04-08 14:23] VITALS: RESP 16
== END 2023-04-08 14:40 | disposition home or self-care (01) ==
PROVIDERS: Emergency Provider Emergency Medicine; PCP Family Medicine; Visit Provider Emergency Medicine
DX: K62.5 Hemorrhage of anus and rectum (principal); R10.9 Unspecified abdominal pain; F17.210 Nicotine dependence, cigarettes, uncomplicated
CPT/HCPCS: 74177; 80048; 81001; 82274; 83605; 85025; 96361; 96374; 96375; 99283; J7030; Q9967; A4216

== ENCOUNTER 2023-05-10 11:54 | Day surgery (SDC) | payer MEDICARE, MEDICAID, SELFPAY ==
[2023-05-10 12:37] VITALS: BP 90/60; PULSE 65; RESP 16; TEMP 36.6; O2SAT 98; BMI 23.4
[2023-05-10] MEDS: Lactated Ringers 1,000 ML 15 ML IV (12:54)
--- NOTE | 2023-05-10 13:03 | HP.PCM_ITS ---
History and Physical Date of Admission: 05/10/23 Intake Vital Signs 04/08/2312:04 04/20/2314:34 Height 5 ft 4 in 5 ft 4 in Weight: 132 lb BMI 22.6 BP 94/65 Blood Pressure Location Rt brachial Position Sitting Respiration 16 Pulse 71 Pulse Source Monitor Temp 96.2 F L Temp Source Temporal Pulse Oximetry (%) 98 Oxygen Delivery Method room air Intake Visit Reasons: BRB IN STOOL/ABD PAIN Chief Complaint: brb in stool/ abd pain Head Up Operator Helper Required: No Is patient in pain?: No Allergies nickel Adverse Reaction (Intermediate, Verified 04/20/23 14:35) Otheriodine Adverse Reaction (Verified 04/20/23 14:35) Unknownmetronidazole Adverse Reaction (Verified 04/20/23 14:35) Unknownsulfamethoxazole [From Bactrim] Adverse Reaction (Verified 04/20/23 14:35) Unknowntrimethoprim [From Bactrim] Adverse Reaction (Verified 04/20/23 14:35) Unknown Medications albuterol sulfate 90 mcg/actuation aerosol inhaler 2 puff inhalation Q4H PRN PRN Sob &/Or Wheezing 10/11/17 [History Confirmed 04/20/23] cholecalciferol (vitamin D3) 25 mcg (1,000 unit) tablet 1,000 unit PO DAILY 10/11/17 [History Confirmed 04/20/23] ipratropium bromide 17 mcg/actuation HFA aerosol inhaler 2 puff PO 4X/DAY 10/11/17 [History Confirmed 04/20/23] levothyroxine 50 mcg tablet 50 mcg PO QODAY 10/11/17 [History Confirmed 03/04] levothyroxine 75 mcg tablet 75 mcg PO QODAY 10/11/17 [History Confirmed 04/20/23] omeprazole 20 mg capsule,delayed release 20 mg PO BID 10/11/17 [History Confirmed 04/20/23] pravastatin 20 mg tablet 20 mg PO QDAY #90 tabs 12/08/17 [Rx Confirmed 04/20/23] ascorbic acid (vitamin C) 500 mg capsule 500 mg PO QDAY 01/03/18 [History Confirmed 04/20/23] garlic 1,000 mg capsule 1,000 mg PO QDAY 01/03/18 [History Confirmed 04/20/23] multivitamin (Daily Multi-Vitamin tablet) 1 tab PO QDAY 01/03/18 [History Confirmed 04/20/23] aspirin 81 mg tablet,delayed release (Adult Aspirin Regimen) 81 mg PO DAILY 02/21/19 [History Confirmed 04/20/23] atenolol 50 mg tablet 50 mg PO BID #180 tabs 04/10/19 [Rx Confirmed 04/20/23] PFSH Medical History Asthma GERD (gastroesophageal reflux disease) History of GI bleed Hyperlipidemia Hyperthyroidism Nicotine dependence Paroxysmal atrial fibrillation Paroxysmal ventricular tachycardia Surgical History History of exploratory laparotomy History of left heart catheterization (01/05/18) Family History (Updated 04/20/23 @ 14:33 by Randa Cooley LPN) Sister Cancer lung and brain Social History Smoking Status: Current some day smoker tobacco type: cigarettes HPI HPI HPI: Patient is a 73-year-old female here for bright red blood in her stool. This only happened for a day and a half back at the end of March. She says she does pass very hard stools. She says the blood was on the outside of the stool. She does not report any pain with this episode. She denies any abdominal pain currently. She says that she has not had any blood in her stool since that episode. She had her last colonoscopy in 2014 she thinks. She also reports she has been having unintentional weight loss. ROS General General: Yes weight change and fatigue; No appetite, colon cancer, breast cancer or weakness HEENT HEENT: No difficulty swallowing, eye injury, eye surgery, swollen glands or hoarseness Endo Endocrine: Yes thyroid disease; No diabetes mellitus, thyroid cancer, Hair loss, heat intolerance or cold intolerance Skin Skin: No rash or changing moles Breast Breast: No left breast lump, right breast lump, nipple discharge, breast pain, abnormal mammogram, abnormal US or breast enlargement Musc Musculoskeletal: Yes back problems; No arthritis, rheumatoid arthritis, gout or joint pain Cardio Cardiovascular: No murmur, pacemaker, heart disease, atrial fibrillation, high blood pressure, heart attack, heart stent, palpitations, shortness of breat with exertion or chest pain Psych Psychiatric: No depression, anxiety or hearing voices Resp Respiratory: Yes shortness of breath, No sleep apnea, No cough, Yes COPD, No asthma, No emphysema and No wheezing Gastro Gastrointestinal: Yes abdominal pain, No nausea or vomiting, No diarrhea, Yes constipation, No blood in stool, No acid reflux, No hemorrhoids, No ulcers, No gallbladder problem and No black,tarry stools Garth Hematologic: No blood thinners, No blood disorders, No bleeding, No anemia and No blood clots Neuro Neurologic: No system reviewed and no additional complaints, except as documented, No as per HPI, No abnormal gait, No abnormal hearing, No abnormal movements, No abnormal speech, No behavioral changes, No burning sensations, No confusion, No convulsions, No disequilibrium, No dizziness, No localized weakness, No frequent falls, No headache(s), No lack of coordination, No loss of vision, No memory loss, Yes numbness, No other visual disturbances, No radicular pain, No restless legs, No sensory deficit, No syncope, Yes tingling, No tremor(s), No weakness and No other Exam Const General: cooperative Orientation: alert and oriented x3 HENMT Head: normal to inspection Neck Neck: normal visual inspection and full ROM Chest Chest palpation & inspection: normal inspection of the chest Resp Effort & Inspection: normal respiratory effort Auscultation: clear to auscultation bilaterally Cardio Rate: regular rate Rhythm: regular rhythm GI Inspection: non-distended Palpation: soft and nontender Skin General: no rashes or lesions noted Neuro General: patient alert and patient oriented x3 Extrem General: full ROM Psych Appearance: grossly normal Mental Status: mental status grossly normal Assessment and Plan Assessment and Plan (1) History of GI bleed: Status: Chronic Plan: Patient had blood on her stool at the end of March for about a day and a half and this has resolved with the patient is still concerned that she has unintentional weight loss. I recommended colonoscopy to her. She will stop her aspirin 5 days before the procedure. I explained endoscopy in detail to the patient. I explained the risks including but not limited to stroke or heart attack with anesthesia, perforation of the GI tract, bleeding, infection. I explained that any of these could necessitate further emergency surgery. The patient understands and all questions were answered sufficiently. The patient wishes to proceed with procedure. Emanuel Frost MD Pager: [facility] [address] [place] [address], [address] [place] [address] Office: I have examined the patient and the H&P has been reviewed. There are no clinical changes since date of exam.
[2023-05-10 13:45] VITALS: BP 90/60; BP 95/46; PULSE 55; RESP 18; TEMP 36.1; O2SAT 98
--- NOTE | 2023-05-10 13:47 | OP.COLON_ITS ---
Patient Name: Betzy Lindo Procedure Date: 05/10/2023 1:07 PM Date of : 1950 Age: 73 Procedure: Colonoscopy Indications: Rectal bleeding, Weight loss Providers: Emanuel Frost MD Medicines: Monitored Anesthesia Care Patient Profile: Last Colonoscopy: 3 years ago. Complications: No immediate complications. Procedure: Pre-Anesthesia Assessment: - Prior to the procedure, a History and Physical was performed, and patient medications and allergies were reviewed. The patient's tolerance of previous anesthesia was also reviewed. The risks and benefits of the procedure and the sedation options and risks were discussed with the patient. All questions were answered, and informed consent was obtained. Prior Anticoagulants: The patient has taken no anticoagulant or antiplatelet agents. After reviewing the risks and benefits, the patient was deemed in satisfactory condition to undergo the procedure. After I obtained informed consent, the scope was passed under direct vision. Throughout the procedure, the patient's blood pressure, pulse, and oxygen saturations were monitored continuously. The Colonoscope was introduced through the anus and advanced to the cecum, identified by appendiceal orifice and ileocecal valve. The colonoscopy was performed without difficulty. The patient tolerated the procedure well. The quality of the bowel preparation was good. Anatomical landmarks were photographed. Scope In: 1:21:12 PM Scope Withdrawal Time 0 hours 6 minutes 21 seconds Scope Out: 1:37:43 PM Total Procedure Duration Time 0 hours 16 minutes 31 seconds Findings: The entire examined colon appeared normal on direct and retroflexion views. Impression: - The entire examined colon is normal on direct and retroflexion views. - No specimens collected. Recommendation: - Discharge patient to home. - Resume previous diet. - Continue present medications. - Repeat colonoscopy is not recommended due to current age (66 years or older) for screening purposes. Procedure Code(s): --- Professional --- 82163, Colonoscopy, flexible; diagnostic, including collection of specimen(s) by brushing or washing, when performed (separate procedure) Diagnosis Code(s): --- Professional --- K62.5, Hemorrhage of anus and rectum R63.4, Abnormal weight loss CPT copyright 2021 [employer]. All rights reserved. The codes documented in this report are preliminary and upon [place] studies director review may be revised to meet current compliance requirements. Emanuel Frost MD 05/10/2023 1:47:29 PM This report has been signed electronically. Number of Addenda: 0 Note Initiated On: 05/10/2023 1:07 PM
--- NOTE | 2023-05-10 13:48 | OP.CCLET_ITS ---
05/10/2023 Booker Hunter Re : Colonoscopy procedure for Betzy Lindo Dear Elsa This procedure was performed on Wednesday, May 10, 2023. My impressions and recommendations are as follows: Impressions : - The entire examined colon is normal on direct and retroflexion views. - No specimens collected. Recommendations : - Discharge patient to home. - Resume previous diet. - Continue present medications. - Repeat colonoscopy is not recommended due to current age (66 years or older) for screening purposes. My findings are described in the full procedure note, which is enclosed. If I can be of further assistance, please feel free to contact me at Doctor phone number(s): , Work: . Sincerely, Emanuel Frost MD 05/10/2023 1:47:29 PM This report has been signed electronically.
[2023-05-10 13:49] VITALS: BP 90/60; BP 94/52; PULSE 56; RESP 18; O2SAT 98
[2023-05-10 13:54] VITALS: BP 104/55; BP 90/60; PULSE 53; RESP 18; O2SAT 99
[2023-05-10 14:00] VITALS: BP 113/54; BP 90/60; PULSE 52; RESP 12; TEMP 36.7; O2SAT 100
[2023-05-10 14:25] VITALS: BP 90/60
== END 2023-05-10 14:27 | disposition home or self-care (01) ==
LOC: EN 11:56 → AC 11:57
PROVIDERS: PCP Family Medicine; Referring Provider Family Medicine; Visit Provider Surgery
PROC: 0DJD8ZZ Inspection of Lower Intestinal Tract, Via Natural or Artificial Opening Endoscopic (ICD-10-PCS; CPT 45378; principal; 2023-05-10 12:55)
DX: K62.5 Hemorrhage of anus and rectum (principal); J44.9 Chronic obstructive pulmonary disease, unspecified; I48.0 Paroxysmal atrial fibrillation; E78.00 Pure hypercholesterolemia, unspecified; F17.210 Nicotine dependence, cigarettes, uncomplicated; K21.9 Gastro-esophageal reflux disease without esophagitis; E05.90 Thyrotoxicosis, unspecified without thyrotoxic crisis or storm; R63.4 Abnormal weight loss; Z79.899 Other long term (current) drug therapy; Z68.23 Body mass index [BMI] 23.0-23.9, adult
CPT/HCPCS: 45378; J7120; J2405